=== PATIENT | female | born 1945 | race Caucasian/White ===

== ENCOUNTER → 2022-09-05 14:59 | Outpatient (BNVA) | payer MEDICARE, OTHER, SELFPAY | PROVIDERS: Family Provider Family Medicine; PCP Family Medicine; Visit Provider Internal Medicine Cardiovascular Disease | DX: R94.31 Abnormal electrocardiogram [ECG] [EKG] (principal); I10 Essential (primary) hypertension; E11.9 Type 2 diabetes mellitus without complications; Z79.84 Long term (current) use of oral hypoglycemic drugs; G47.30 Sleep apnea, unspecified; E78.5 Hyperlipidemia, unspecified | CPT/HCPCS: 99204 ==

== ENCOUNTER 2022-09-30 06:00 | Outpatient (CLI) | payer MEDICARE, OTHER, SELFPAY ==
--- NOTE | 2022-09-30 06:15 | USCV_ITS ---
Lexi Escalera Age: 77 Gender: F : 1945 Exam Date: 09/30/2022 06:25 Ordering Phys: Leena Stroud MD ([email or web address]) Technologist: RADHA Exam Location: [facility] [place] Indication: ABNORMAL EKG BP: 170 / 92 HR: 38 Rhythm: Atrial fibrillation Technical Quality: Adequate MEASUREMENTS (Male / Female) Normal Values 2D ECHO LVOT Diameter 2.0 cm LV Ejection Fraction MOD 2C 38.4 % LV Ejection Fraction 2C AL 40.7 % LA Diameter 3.9 cm LA Width 4.2 cm LA Height 4.9 cm RA Width 4.4 cm RA Height 4.7 cm Aorta at Sinotubular Diameter 2.2 cm IVC Diameter 1.8 cm M-MODE Aortic Annulus Diameter 2.6 cm LA Ao Ratio MM 1.5 MV E Point Septal Separation 1.0 cm DOPPLER AV Peak Velocity 112.0 cm/s LVOT Peak Velocity 61.0 cm/s AV Area Cont Eq vti 1.7 cm squared AV Area Cont Eq pk 1.7 cm squared MV Peak Velocity 131.0 cm/s MV Area PHT 4.0 cm squared MV E' Velocity 57.5 cm/s Mitral E to MV E' Ratio 11.3 Mitral E to LV E' Lateral Ratio 10.6 Mitral E to LV E' Septal Ratio 12.1 TR Peak Velocity 317.6 cm/s TR Peak Gradient 40.3 mmHg TR Mean Velocity 252.7 cm/s TR Mean Gradient 27.8 mmHg TR Velocity Time Integral 126.3 cm TV Peak E Velocity 39.0 cm/s Right Atrial Pressure 3.0 mmHg Pulmonary Artery Systolic Pressu 43.3 mmHg PV Peak Velocity 93.0 cm/s RV Acceleration Time 0.2 s RV Ejection Time 0.3 s RV AcT/ET 0.6 FINDINGS Left Ventricle Normal left ventricular size with diminished ejection fraction of 41%. Diffuse hypokinesia of the left ventricle. Right Ventricle The right ventricle is normal in size and function. Right Atrium The right atrium is normal in size. Left Atrium Mildly increased left atrial size. Mitral Valve Moderately severe mitral valve regurgitation. Thickened mitral valve. Aortic Valve No gross abnormalities noted Tricuspid Valve Mild tricuspid valve regurgitation. Pulmonic Valve Trace pulmonary valve regurgitation. Pericardium Normal pericardium without effusion. Aorta Normal ascending aorta dimension. IVC Normal inferior vena cava. CONCLUSIONS Normal left ventricular size with diminished ejection fraction of 41%. In view of the frequent arrhythmias during the study, the LV ejection fraction estimation could be misleading Diffuse hypokinesia of the left ventricle. Mildly increased left atrial size. Thickened mitral valve. Moderately severe mitral valve regurgitation. Mild tricuspid valve regurgitation. Trace pulmonary valve regurgitation. Estimated pulmonary artery peak systolic pressure was 43 mmHg. There is no pericardial effusion. There are no intracardiac masses. No similar previous studies are available for comparison Dr Leena Stroud MD [facility] (Electronically Signed) Final Date: 30 September 2022 19:23 S
== END 2022-09-30 06:01 | disposition home or self-care (01) ==
LOC: RAD 06:01
PROVIDERS: Family Provider Family Medicine; PCP Family Medicine; Visit Provider Internal Medicine Cardiovascular Disease
DX: I08.1 Rheumatic disorders of both mitral and tricuspid valves (principal); R06.09 Other forms of dyspnea
CPT/HCPCS: 93306

== ENCOUNTER 2022-10-25 07:16 | Outpatient (CLI) | payer MEDICARE, OTHER, SELFPAY ==
--- NOTE | 2022-10-25 | ECG_ITS ---
[facility] Test Date: 2022-10-25 Pat Name: Lexi Escalera Department: Room: Gender: Female Analytical Lead: Jazz Dukes : 1945 Requested By: Leena Stroud Order Number: [id number] Bob MD: Leena Stroud M.D. Interpretive Statements NAME OF STUDY: LEXISCAN SESTAMIBI STRESS TEST INDICATION: Chest Pain, PROCEDURE: At the baseline, the EKG revealed sinus rhythm with frequent PVCs in the form of bigeminy and ventricular couplets. The baseline heart was 70 bpm with a blood pressue of 125/58 mm of Hg Lexiscan was infused over a period of 20 seconds. A total of 0.4 milligrams of Lexiscan was infused. The stress phase was continued for a total of 5 minutes. Heart rate at the end of the stress phase was 88 bpm with a blood pressure 130/80 mm of Hg. The EKG at the peak infusion revealed no significant changes. Sestamibi was injected 20 seconds after the Lexiscan infusion. Heart rate at the end of the recovery phase was 90 bpm with a blood pressure of 133/79 mm of Hg. CONCLUSION: 1. No significant EKG changes with the LexiScan infusion 2. No LexiScan induced chest pain or cardiac arrhythmia 3. Normal blood pressure and heart rate response 4. Sestamibi/sestamibi perfusion scan pending; see separate report. Electronically Signed On 11-04-2022 11:28:00 APPLICATIONS PROCESSOR by Leena Stroud M.D. [id number]
[2022-10-25 07:55] VITALS: BMI 25.7
--- NOTE | 2022-10-25 07:55 | NMCV_ITS ---
NM maureen perf SPECT r/s* [id number] Lexi Escalera Age: 77 Gender: F : 1945 Exam Date: 10/25/2022 08:54 Ordering Phys: Leena Stroud MD ([email or web address]) Technologist: MUNIR Olivares Exam Location: [facility] Indications: CORONARY ANGIOPLASTY STATUS STRESS TEST Please see separate [facility] for full findings IMAGE PROTOCOL Rest/Stress 1 Lexiscan Day Radiopharmaceutical Dose (mCi) Administration Site Administered by Rest: Tc-99m 10.7 IV MUNIR Kumar Sestamibi Stress:Tc-99m 32.6 IV MUNIR Kumar Sestamibi Rest: 25-Oct-2022 60 Discovery 630 Stress: 25-Oct-2022 30 Discovery 630 Images obtained in supine and prone position. 0.4mg Lexiscan. SPECT RESULTS Technical Quality: Excellent Raw Data Analysis: Normal Image Corrections: No attenuation or motion correction applied Summed Stress Score: 4 Summed Rest Score: 15 Summed Difference Score: 0 PERFUSION FINDINGS Small areas of decreased tracer uptake were noted in the apical lateral, apical inferior and LV apex. No significant reversibility was noted in these regions. FUNCTIONAL RESULTS (calculated via Gated SPECT) Stress Image LV EF (%): 49 Stress EDV (mL):138 TID: 0.85 Stress ESV (mL):71 FUNCTIONAL FINDINGS: Segmental wall motion analysis revealed diffuse hypokinesia of the septum and the LV apex. The LV cavity was found to be mildly dilated IMPRESSIONS 1. Myocardial perfusion imaging revealing small areas of persistent decreased treacer uptake in the apical regions suggesting myocardial scarring. 2. Slightly diminished LV ejection fraction of 49%. 3. LV wall motion analysis revealed diffuse hypokinesia of the septum and the LV apex. 4. Mildly dilated LV cavity with an end-systolic volume of 71 ml. Low probability for coronary ischemia, based on the above findings No similar previous studies are available for comparison Dr Leena Stroud MD FAC (Electronically Signed) Final Date: 25 October 2022 19:41 S
[2022-10-25] MEDS: regadenoson 0.4 Mg/5 ml Syringe IVP (09:25)
[2022-10-25 09:30] VITALS: BP 133/79; PULSE 90
== END 2022-10-25 07:17 | disposition home or self-care (01) ==
PROVIDERS: PCP Family Medicine; Visit Provider Internal Medicine Cardiovascular Disease
DX: R07.9 Chest pain, unspecified (principal); Z98.61 Coronary angioplasty status; R06.02 Shortness of breath
CPT/HCPCS: 36415; 78452; 93017; 96374; A9500; J2785

== ENCOUNTER 2022-12-06 15:02 | Outpatient (CLI) | payer MEDICARE, OTHER, SELFPAY ==
--- NOTE | 2022-12-06 15:33 | MM_ITS ---
WS: [id number] BILATERAL 3D TOMOSYNTHESIS DIGITAL SCREENING MAMMOGRAPHY WITH CAD CLINICAL INFORMATION: SCREENING HISTORY: Screening mammogram. No current complaints. COMPARISON: 2017 TECHNIQUE: Bilateral CC and MLO views. FINDINGS: Scattered fibroglandular densities bilaterally. No suspicious focal mass, asymmetry, calcifications, or architectural distortion. No evidence of malignancy. A few incidental punctate calcifications. MM/[place] [id number] IMPRESSION: BI-RADS: 2-Benign FOLLOW UP: 1 Year Follow-up Recommend return to annual screening mammography.
== END 2022-12-06 15:03 | disposition home or self-care (01) ==
PROVIDERS: PCP Family Medicine; Visit Provider Family Medicine
DX: Z12.31 Encounter for screening mammogram for malignant neoplasm of breast (principal)
CPT/HCPCS: 77063; 77067

== ENCOUNTER → 2023-03-01 13:58 | Outpatient (BNVA) | payer MEDICARE, OTHER, SELFPAY | PROVIDERS: PCP Family Medicine; Visit Provider Internal Medicine Cardiovascular Disease | DX: I34.0 Nonrheumatic mitral (valve) insufficiency (principal); E78.5 Hyperlipidemia, unspecified; G47.30 Sleep apnea, unspecified; E11.9 Type 2 diabetes mellitus without complications; I10 Essential (primary) hypertension; Z79.84 Long term (current) use of oral hypoglycemic drugs | CPT/HCPCS: 99214 ==

== ENCOUNTER → 2023-05-08 09:51 | Outpatient (BNVA) | payer MEDICARE, OTHER, SELFPAY | PROVIDERS: PCP Family Medicine; Visit Provider Podiatrist Foot & Ankle Surgery | DX: I73.9 Peripheral vascular disease, unspecified (principal); B35.1 Tinea unguium; R60.9 Edema, unspecified; M21.611 Bunion of right foot; M21.612 Bunion of left foot; M20.42 Other hammer toe(s) (acquired), left foot; M20.41 Other hammer toe(s) (acquired), right foot; M24.571 Contracture, right ankle; M24.572 Contracture, left ankle; Z79.84 Long term (current) use of oral hypoglycemic drugs | CPT/HCPCS: 11721; 99204 ==

== ENCOUNTER → 2023-07-17 09:38 | Outpatient (BNVA) | payer MEDICARE, OTHER, SELFPAY | PROVIDERS: PCP Family Medicine; Visit Provider Podiatrist Foot & Ankle Surgery | DX: B35.1 Tinea unguium (principal); M21.619 Bunion of unspecified foot; E11.9 Type 2 diabetes mellitus without complications; M20.40 Other hammer toe(s) (acquired), unspecified foot; R60.9 Edema, unspecified; M24.573 Contracture, unspecified ankle; I73.9 Peripheral vascular disease, unspecified; Z79.84 Long term (current) use of oral hypoglycemic drugs | CPT/HCPCS: 11721; 99213 ==

== ENCOUNTER → 2023-09-13 13:48 | Outpatient (BNVA) | payer MEDICARE, OTHER, SELFPAY | PROVIDERS: PCP Family Medicine; Visit Provider Internal Medicine Cardiovascular Disease | DX: I34.0 Nonrheumatic mitral (valve) insufficiency (principal); I10 Essential (primary) hypertension; E11.9 Type 2 diabetes mellitus without complications; G47.30 Sleep apnea, unspecified; E78.5 Hyperlipidemia, unspecified; R60.0 Localized edema; I49.8 Other specified cardiac arrhythmias; Z79.84 Long term (current) use of oral hypoglycemic drugs | CPT/HCPCS: 99214 ==

== ENCOUNTER → 2023-09-18 09:08 | Outpatient (BNVA) | payer MEDICARE, OTHER, SELFPAY | PROVIDERS: PCP Family Medicine; Visit Provider Podiatrist Foot & Ankle Surgery | DX: B35.1 Tinea unguium (principal); M20.40 Other hammer toe(s) (acquired), unspecified foot; R60.9 Edema, unspecified; M24.573 Contracture, unspecified ankle; I73.9 Peripheral vascular disease, unspecified; M21.612 Bunion of left foot; M21.611 Bunion of right foot; M24.572 Contracture, left ankle; M24.571 Contracture, right ankle; Z79.84 Long term (current) use of oral hypoglycemic drugs | CPT/HCPCS: 11721 ==

== ENCOUNTER 2023-09-27 06:03 | Outpatient (CLI) | payer MEDICARE, OTHER, SELFPAY ==
--- NOTE | 2023-09-27 06:15 | USCV_ITS ---
Lexi Escalera Age: 78 Gender: F : 1945 Exam Date: 09/27/2023 06:18 Ordering Phys: Leena Stroud MD ([email or web address]) Technologist: RADHA [place] [facility] [place]ication: RLE SWELLING [id number] HISTORY: Lower extremity swelling. PROCEDURES: Venous duplex imaging was performed in only the right lower extremity. The following venous structures were evaluated: common femoral vein, profunda vein, proximal portion of the greater saphenous vein, superficial femoral vein, and the popliteal vein. In addition, the posterior tibial and peroneal trunk were evaluated. Serial compression, augmentation maneuvers, and spectral Doppler flow evaluation were performed. FINDINGS: No evidence of DVT seen in any vessel visualized at this time. Edema see in lower right leg CONCLUSIONS No DVT right lower extremity. Dr. Myrna Carlos DO (Electronically Signed) Final Date: 27 September 2023 08:31 S
== END 2023-09-27 06:04 | disposition home or self-care (01) ==
LOC: RAD 06:03
PROVIDERS: PCP Family Medicine; Visit Provider Internal Medicine Cardiovascular Disease
DX: M79.89 Other specified soft tissue disorders (principal); M79.661 Pain in right lower leg
CPT/HCPCS: 11721; 93971

== ENCOUNTER 2023-10-03 16:08 | Outpatient (CLI) | payer MEDICARE, OTHER, SELFPAY ==
[2023-10-03 17:01] LABS: Blood Urea Nitrogen 19 mg/dL (8-23); Calcium 9.6 mg/dL (8.5-10.5); Carbon Dioxide 27 mmol/L (22-29); Chloride 102 mmol/L (98-107); Glucose 133 mg/dL (65-115); NT Pro B Type Natriuretic Pept 1027 pg/mL (0-450); Osmolality Calculated 296 mOsm/kg (285-295); Sodium 141 mmol/L (136-145)
== END 2023-10-03 16:09 | disposition home or self-care (01) ==
LOC: LAB 16:09
PROVIDERS: PCP Family Medicine; Visit Provider Internal Medicine Cardiovascular Disease
DX: R06.02 Shortness of breath (principal); I10 Essential (primary) hypertension
CPT/HCPCS: 36415; 80048; 83880

== ENCOUNTER 2023-10-18 09:57 | Outpatient (CLI) | payer MEDICARE, OTHER, SELFPAY ==
[2023-10-18 11:12] LABS: Anion Gap 13.2 (5-19); Blood Urea Nitrogen 23 mg/dL (8-23); Calcium 9.8 mg/dL (8.5-10.5); Carbon Dioxide 30 mmol/L (22-29); Chloride 104 mmol/L (98-107); Glucose 240 mg/dL (65-115); NT Pro B Type Natriuretic Pept 541 pg/mL (0-450); Osmolality Calculated 308 mOsm/kg (285-295); Potassium 4.2 mmol/L (3.5-5.1); Sodium 143 mmol/L (136-145)
== END 2023-10-18 09:58 | disposition home or self-care (01) ==
LOC: LAB 10:00
PROVIDERS: Internal Medicine Cardiovascular Disease; PCP Family Medicine; Visit Provider Internal Medicine
DX: I34.0 Nonrheumatic mitral (valve) insufficiency (principal)
CPT/HCPCS: 36415; 80048; 83880

== ENCOUNTER → 2023-12-04 09:23 | Outpatient (BNVA) | payer MEDICARE, OTHER, SELFPAY | PROVIDERS: PCP Family Medicine; Visit Provider Podiatrist Foot & Ankle Surgery | DX: B35.1 Tinea unguium; M21.619 Bunion of unspecified foot; R60.9 Edema, unspecified; M24.573 Contracture, unspecified ankle; I73.9 Peripheral vascular disease, unspecified; E11.69 Type 2 diabetes mellitus with other specified complication; M20.42 Other hammer toe(s) (acquired), left foot; M20.41 Other hammer toe(s) (acquired), right foot; Z79.84 Long term (current) use of oral hypoglycemic drugs; I34.0 Nonrheumatic mitral (valve) insufficiency | CPT/HCPCS: 11721; 36415; 80048; 83880 ==

== ENCOUNTER → 2024-02-12 07:37 | Outpatient (BNVA) | payer MEDICARE, SELFPAY | PROVIDERS: PCP Family Medicine; Visit Provider Podiatrist Foot & Ankle Surgery | DX: B35.1 Tinea unguium (principal); M21.619 Bunion of unspecified foot; M20.40 Other hammer toe(s) (acquired), unspecified foot; M24.573 Contracture, unspecified ankle; I73.9 Peripheral vascular disease, unspecified; Z79.84 Long term (current) use of oral hypoglycemic drugs | CPT/HCPCS: 11721 ==

== ENCOUNTER → 2024-03-21 14:10 | Outpatient (BNVA) | payer MEDICARE, SELFPAY | PROVIDERS: PCP Family Medicine; Visit Provider Internal Medicine Cardiovascular Disease | DX: I42.9 Cardiomyopathy, unspecified (principal); E78.5 Hyperlipidemia, unspecified; I10 Essential (primary) hypertension; I34.0 Nonrheumatic mitral (valve) insufficiency; E08.9 Diabetes mellitus due to underlying condition without complications; Z79.84 Long term (current) use of oral hypoglycemic drugs; G47.30 Sleep apnea, unspecified; I49.8 Other specified cardiac arrhythmias | CPT/HCPCS: 99214 ==

== ENCOUNTER 2024-03-27 08:06 | Outpatient (CLI) | payer MEDICARE, OTHER, SELFPAY ==
--- NOTE | 2024-03-27 08:12 | MM_ITS ---
WS: [id number] BILATERAL SCREENING DIGITAL TOMOSYNTHESIS MAMMOGRAM WITH CAD HISTORY: SCREENING COMPARISON: 12/06/2022, 05/03/2017 Bilateral CC and MLO views with tomosynthesis and synthetic mammography submitted. Computer aided det ection analyzed. Breast composition: There are scattered areas of fibroglandular density. No suspicious masses, microc alcifications or architectural distortion. MM/[place] [id number] IMPRESSION: BI-RADS: 1-Negative FOLLOW UP: 1 Year Follow-up
== END 2024-03-27 08:07 | disposition home or self-care (01) ==
LOC: RAD 08:09
PROVIDERS: PCP Family Medicine; Visit Provider Family Medicine
DX: Z12.31 Encounter for screening mammogram for malignant neoplasm of breast (principal); R92.323 Mammographic fibroglandular density, bilateral breasts
CPT/HCPCS: 77063; 77067

== ENCOUNTER 2024-04-01 05:50 | Outpatient (CLI) | payer MEDICARE, OTHER, SELFPAY ==
--- NOTE | 2024-04-01 06:15 | USCV_ITS ---
Lexi Escalera Age: 78 Gender: F : 1945 Exam Date: 04/01/2024 06:03 Ordering Phys: Leena Stroud MD ([email or web address]) Technologist: Exam Location: [facility] [place] Indication: mumur BP: 120 / 70 HR: 80 Rhythm: Sinus Technical Quality: Adequate MEASUREMENTS (Male / Female) Normal Values 2D ECHO LV Diastolic Diameter PLAX 4.8 cm 4.2 - 5.9 / 3.9 - 5.3 cm IVS Diastolic Thickness 1.1 cm 0.6 - 1.0 / 0.6 - 0.9 cm IVS Systolic Thickness 1.7 cm LVPW Diastolic Thickness 1.5 cm 0.6 - 1.0 / 0.6 - 0.9 cm LVPW Systolic Thickness 2.1 cm LVOT Diameter 2.0 cm LV Ejection Fraction 2D Teich 51.5 % LV Ejection Fraction MOD 2C 69.5 % LV Ejection Fraction 2C AL 69.2 % LA Diameter 3.9 cm RA Systolic Volume 4C AL 32.9 ml RA Systolic Volume 4C MOD 31.7 ml LA Sys Volume AL 51.0 cm cubed LA Sys Volume Index AL 26.6 cm cubed/m squared Aorta at Sinotubular Diameter 2.5 cm IVC Diameter 1.2 cm M-MODE LA Ao Ratio MM 1.2 AV Cusp Separation MM 2.1 cm DOPPLER AV Peak Velocity 116.0 cm/s LVOT Peak Velocity 63.0 cm/s AV Area Cont Eq vti 2.1 cm squared AV Area Cont Eq pk 1.7 cm squared MV Peak Velocity 84.0 cm/s MV Area PHT 3.7 cm squared Mitral E to A Ratio 1.2 TR Peak Velocity 314.0 cm/s TR Peak Gradient 39.4 mmHg TV Peak E Velocity 108.0 cm/s Right Atrial Pressure 3.0 mmHg Pulmonary Artery Systolic Pressu 42.4 mmHg PV Peak Velocity 104.0 cm/s FINDINGS Left Ventricle Normal left ventricular size and systolic function, EF 69%. No regional wall motion abnormalities. Right Ventricle The right ventricle is normal in size and function. Right Atrium The right atrium is normal in size. Left Atrium Mildly increased left atrial size. Mitral Valve Trace mitral valve regurgitation. Aortic Valve No gross abnormalities noted Tricuspid Valve Trace tricuspid valve regurgitation. Estimated pulmonary artery peak systolic pressure 42 mmHg Pulmonic Valve No gross abnormalities noted Pericardium Normal pericardium without effusion. Aorta Normal ascending aorta dimension. IVC Normal inferior vena cava. CONCLUSIONS Normal left ventricular size and systolic function, EF 69%. No regional wall motion abnormalities. Mildly increased left atrial size. Trace mitral valve regurgitation. Trace tricuspid valve regurgitation. Mild pulmonary hypertension within an estimated pulmonary artery peak systolic pressure 42 mmHg. There is no pericardial effusion. Technically difficult study because of the poor ultrasonic window. Compared to the study from 09/30/2022, there is significant improvement of the LV ejection fraction from 41% to 69% Dr Leena Stroud MD [facility] (Electronically Signed) Final Date: 01 April 2024 18:48 S
== END 2024-04-01 05:51 | disposition home or self-care (01) ==
LOC: RAD 05:50
PROVIDERS: PCP Family Medicine; Visit Provider Internal Medicine Cardiovascular Disease
DX: I34.0 Nonrheumatic mitral (valve) insufficiency (principal); I42.9 Cardiomyopathy, unspecified; I27.20 Pulmonary hypertension, unspecified
CPT/HCPCS: 93306

== ENCOUNTER → 2024-04-15 07:54 | Outpatient (BNVA) | payer MEDICARE, OTHER, SELFPAY | PROVIDERS: PCP Family Medicine; Visit Provider Podiatrist Foot & Ankle Surgery | DX: B35.1 Tinea unguium (principal); M20.40 Other hammer toe(s) (acquired), unspecified foot; M24.573 Contracture, unspecified ankle; I73.9 Peripheral vascular disease, unspecified; E11.69 Type 2 diabetes mellitus with other specified complication; M24.571 Contracture, right ankle; M24.572 Contracture, left ankle; M21.611 Bunion of right foot; M21.612 Bunion of left foot | CPT/HCPCS: 11721 ==

== ENCOUNTER → 2024-06-14 10:32 | Outpatient (BNVA) | payer MEDICARE, OTHER, SELFPAY | PROVIDERS: PCP Family Medicine; Visit Provider Nurse Practitioner Family | DX: R94.31 Abnormal electrocardiogram [ECG] [EKG] (principal); I10 Essential (primary) hypertension; I49.8 Other specified cardiac arrhythmias; I48.91 Unspecified atrial fibrillation | CPT/HCPCS: 36415; 80048; 84439; 84443; 84481; 85025; 93005; 99214 ==

== ENCOUNTER → 2024-06-18 07:53 | Outpatient (BNVA) | payer MEDICARE, OTHER, SELFPAY | PROVIDERS: PCP Family Medicine; Visit Provider Podiatrist Foot & Ankle Surgery | DX: B35.1 Tinea unguium (principal); I73.9 Peripheral vascular disease, unspecified; M20.41 Other hammer toe(s) (acquired), right foot; M20.42 Other hammer toe(s) (acquired), left foot; M24.571 Contracture, right ankle; M24.572 Contracture, left ankle; Z79.84 Long term (current) use of oral hypoglycemic drugs; E11.69 Type 2 diabetes mellitus with other specified complication | CPT/HCPCS: 11721 ==

== ENCOUNTER 2024-07-16 09:39 | Outpatient (CLI) | payer MEDICARE, OTHER, SELFPAY ==
[2024-07-16 10:02] VITALS: BMI 26.6
--- NOTE | 2024-07-16 10:02 | ECG_ITS ---
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
--- NOTE | 2024-07-16 10:03 | NMCV_ITS ---
NM maureen perf SPECT r/s* [id number] Lexi Escalera Age: 79 Gender: F : 1945 Exam Date: 07/16/2024 10:43 Ordering Phys: Jennifer Farrell Technologist: MUNIR Kumar Exam Location: [facility] Indications: SOB STRESS TEST Please see separate stress test report in [facility] for full findings IMAGE PROTOCOL Rest/Stress 1 Lexiscan Day Radiopharmaceutical Dose (mCi) Administration Site Administered by Rest: Tc-99m 10.8 IV MUNIR Kumar Sestamibi Stress:Tc-99m 32.9 IV MUNIR Kumar Sestamibi Rest: 16-Jul-2024 60 Discovery 630 Stress: 16-Jul-2024 30 Discovery 630 0.4mg Lexiscan. Images obtained in supine and prone position. SPECT RESULTS Technical Quality: Good Raw Data Analysis: Subdiaphragmatic activity cause some scaling problems on stress supine and rest. [place] area looks okay prone images. Image Corrections: No attenuation or motion correction applied Summed Stress Score: 12 Summed Rest Score: 15 Summed Difference Score: 1 PERFUSION FINDINGS Moderate area of moderately decreased tracer uptake involving the all the apical segments including the LV apex and apical inferolateral regions segments. Minimal reversibility was noted at the LV apex FUNCTIONAL RESULTS (calculated via Gated SPECT) Stress Image LV EF (%): 61 Stress EDV (mL):93 TID: 0.75 Stress ESV (mL):36 FUNCTIONAL FINDINGS: Segmental wall motion analysis revealing mild hypokinesis of the LV apex IMPRESSIONS 1. Myocardial perfusion imaging revealing small to moderate area of moderately decreased tracer uptake involving all the apical segment, LV apex and mid inferolateral segments with no significant reversibility suggesting myocardial scarring mostly in the distribution of the distal circumflex and left anterior descending artery 2. Normal LV ejection fraction 61% 3. LV wall motion analysis revealing mild hypokinesia of the LV apex. 4. Normal LV volume No significant coronary ischemia, based on the above finding Compared to the study from 10/25/2022, there may not be a significant change Dr Leena Stroud MD [facility] (Electronically Signed) Final Date: 16 July 2024 13:52 S
[2024-07-16] MEDS: regadenoson 0.4 Mg/5 ml Syringe IVP (11:45)
[2024-07-16 11:56] VITALS: BP 106/65; PULSE 87
== END 2024-07-16 09:40 | disposition home or self-care (01) ==
PROVIDERS: PCP Family Medicine; Visit Provider Nurse Practitioner Family
DX: R94.31 Abnormal electrocardiogram [ECG] [EKG] (principal); I10 Essential (primary) hypertension; I42.9 Cardiomyopathy, unspecified; I49.9 Cardiac arrhythmia, unspecified
CPT/HCPCS: 36415; 78452; 93017; 96374; A9500; J2785

== ENCOUNTER → 2024-08-20 08:19 | Outpatient (BNVA) | payer MEDICARE, OTHER, SELFPAY | PROVIDERS: PCP Family Medicine; Visit Provider Podiatrist Foot & Ankle Surgery | DX: B35.1 Tinea unguium (principal); M24.573 Contracture, unspecified ankle; I73.9 Peripheral vascular disease, unspecified; B35.3 Tinea pedis; E11.69 Type 2 diabetes mellitus with other specified complication; M20.41 Other hammer toe(s) (acquired), right foot; M20.42 Other hammer toe(s) (acquired), left foot; Z79.84 Long term (current) use of oral hypoglycemic drugs | CPT/HCPCS: 11721; 99213 ==

== ENCOUNTER → 2024-09-30 11:00 | Outpatient (BNVA) | payer MEDICARE, OTHER, SELFPAY | PROVIDERS: PCP Family Medicine; Visit Provider Internal Medicine Cardiovascular Disease | DX: R06.02 Shortness of breath (principal) | CPT/HCPCS: 36415; 80048; 83880 ==

== ENCOUNTER → 2024-10-29 07:04 | Outpatient (BNVA) | payer MEDICARE, OTHER, SELFPAY | PROVIDERS: PCP Family Medicine; Visit Provider Podiatrist Foot & Ankle Surgery | DX: B35.1 Tinea unguium (principal); I73.9 Peripheral vascular disease, unspecified; B35.3 Tinea pedis; E11.69 Type 2 diabetes mellitus with other specified complication; M20.41 Other hammer toe(s) (acquired), right foot; M20.42 Other hammer toe(s) (acquired), left foot; M24.571 Contracture, right ankle; M24.572 Contracture, left ankle; Z79.84 Long term (current) use of oral hypoglycemic drugs | CPT/HCPCS: 11721 ==

== ENCOUNTER 2024-12-26 15:00 | Outpatient (CLI) | payer MEDICARE, OTHER, SELFPAY ==
--- NOTE | 2024-12-26 15:06 | CT_ITS ---
WS: [id number] CT chest wo con [id number] HISTORY: ABNORMAL MRI, follow-up LEFT lower lobe nodule seen on MRI. TECHNIQUE: Axial imaging performed through the thorax. Coronal and sagittal reformats are submitted. All CT scans at [facility] use at least one of these dose optimization techniques: automated exposure control; mA and/or kV adjustment per patient size (includes targeted exams where dose is matched to clinical indication); or iterative reconstruction. CONTRAST: None DLP: 324.70 mGy.cm COMPARISON: MR chest 11/14/2024 Lungs and central airway: Well aerated lungs. Small cluster of calcified nodules in the medial LEFT lower lobe. There is an additional well-circumscribed nodule in the LEFT lower lobe measuring 4.3 mm. No additional mass or nodules. No endobronchial lesions. Pleura: Normal. No pleural effusion. Heart and pericardium: Heart is moderately enlarged. No pericardial effusion. There is a mild pectus excavatum deformity which may be contributing to the appearance of the heart being enlarged. No mediastinal or hilar pathologic adenopathy. Mediastinum and celeste: Lobulated fullness in the LEFT suprahilar region measures 1.2 x 2.9 cm. This mass is closely associated with the pulmonary artery and the mediastinum. Otherwise small mediastinal lymph nodes. Vessels: Mild atherosclerosis aorta. No aneurysm. Normal size pulmonary artery. Chest wall and lower neck: Splenic granulomata. Upper abdomen: Splenic granulomata. Osseous structures: Mild pectus excavatum. Mild curvature and scoliosis of the thoracic spine. Moderate degenerative disc disease and spondylosis. CT/CT chest wo con [id number] IMPRESSION: 1. Noncalcified LEFT lower lobe 4.3 mm pulmonary nodule. Recommend follow-up c hest CT in 6 months. 2. Lobulated soft tissue fullness in the LEFT suprahilar region measures 1.2 x 2.9 cm. Cannot be further evaluated on this unenhanced exam. MRI chest was rev iewed and the hilum was included in a few sequences. These may be bronchogenic cyst. Recommend follow-up chest CT with IV contrast. Adenopathy or solid mass n eeds to be excluded at this time. 3. Benign granulomata medial LEFT lower lobe. 4. Moderate cardiomegaly. Cardiomegaly is being exacerbated by pectus excavatu m deformity.
== END 2024-12-26 15:01 | disposition home or self-care (01) ==
LOC: RAD 15:03
PROVIDERS: PCP Family Medicine; Visit Provider Family Medicine
DX: R93.89 Abnormal findings on diagnostic imaging of other specified body structures (principal); R91.8 Other nonspecific abnormal finding of lung field; J84.10 Pulmonary fibrosis, unspecified; I51.7 Cardiomegaly; I70.0 Atherosclerosis of aorta; D73.89 Other diseases of spleen; M43.8X4 Other specified deforming dorsopathies, thoracic region; M41.84 Other forms of scoliosis, thoracic region; R93.7 Abnormal findings on diagnostic imaging of other parts of musculoskeletal system; M47.9 Spondylosis, unspecified
CPT/HCPCS: 71250

== ENCOUNTER → 2024-12-31 07:21 | Outpatient (BNVA) | payer MEDICARE, OTHER, SELFPAY | PROVIDERS: PCP Family Medicine; Visit Provider Podiatrist Foot & Ankle Surgery | DX: E11.42 Type 2 diabetes mellitus with diabetic polyneuropathy (principal); B35.1 Tinea unguium; M24.573 Contracture, unspecified ankle; I73.9 Peripheral vascular disease, unspecified; B35.3 Tinea pedis; M20.41 Other hammer toe(s) (acquired), right foot; M20.42 Other hammer toe(s) (acquired), left foot; Z79.84 Long term (current) use of oral hypoglycemic drugs | CPT/HCPCS: 11056; 11721; 99213 ==

== ENCOUNTER 2025-01-07 22:35 | Emergency (ER) | payer MEDICARE, OTHER, SELFPAY ==
[2025-01-07 22:45] VITALS: BP 171/88; PULSE 88; RESP 18; TEMP 36.6; O2SAT 88; BMI 26.6
[2025-01-07 22:48] VITALS: BP 171/88; PULSE 88; RESP 18; O2SAT 95
--- NOTE | 2025-01-07 22:49 | ECG_ITS ---
[facility]07 Pat Name: Lexi Escalera Department: Room: Gender: Female Inspector [employer]ings: : 1945 Requested By: Jayden Childress Order Number: [id number] Bob MD: Leena Stroud M.D. Measurements Intervals [place] Rate: 106 P: 83 MD: 150 QRS: 41 QRSD: 82 T: 76 QT: 312 QTc: 415 Interpretive Statements SINUS TACHYCARDIA NONSPECIFIC ST & T-WAVE ABNORMALITY ABNORMAL RHYTHM ECG Compared to ECG 06/14/2024 10:37:33 Atrial fibrillation no longer present Ventricular premature complex(es) no longer present Aberrant conduction of supraventricular beat(s) no longer present T-wave abnormality still present Electronically Signed On 01-08-2025 22:16:49 CDT by Leena Stroud M.D. [email or web address] [email or web address]
--- NOTE | 2025-01-07 22:49 | CTR_ITS ---
PROCEDURE INFORMATION: Exam: CT Cervical Spine Without Contrast Exam date and time: 01/07/2025 11:04 PM Age: 79 years old Clinical indication: Injury or trauma; Fall; Blunt trauma; Additional info: Fall, hit head TECHNIQUE: Imaging protocol: Computed tomography of the cervical spine without contrast. Radiation optimization: All CT scans at this facility use at least one of these dose optimization techniques: automated exposure control; mA and/or kV adjustment per patient size (includes targeted exams where dose is matched to clinical indication); or iterative reconstruction. COMPARISON: CT head wo con* [id number] 01/07/2025 11:01 PM RADIATION DOSE METRICS: Total DLP (mGy-cm): 159.17 FINDINGS: Bones: No acute fracture. Normal alignment. No significant disc bulge or herniation. No severe spinal canal stenosis. No significant neural foraminal narrowing. Extensive anterior vertebral body osteophyte formation noted throughout the cervical spine. Diffuse facet arthropathy present. Lungs: Lung apices are normal. Soft tissues: Unremarkable. CT/CT cervical spin wo con* [id number] IMPRESSION: No acute abnormality. Multilevel degenerative changes involving the cervical spine.
--- NOTE | 2025-01-07 22:49 | CTR_ITS ---
PROCEDURE INFORMATION: Exam: CT Head Without Contrast Exam date and time: 01/07/2025 11:01 PM Age: 79 years old Clinical indication: Injury or trauma; Fall; Blunt trauma (contusions or hematomas); Additional info: Fall, hit head TECHNIQUE: Imaging protocol: Computed tomography of the head without contrast. Radiation optimization: All CT scans at this facility use at least one of these dose optimization techniques: automated exposure control; mA and/or kV adjustment per patient size (includes targeted exams where dose is matched to clinical indication); or iterative reconstruction. COMPARISON: No relevant prior studies available. RADIATION DOSE METRICS: Total DLP (mGy-cm): 1197.18 FINDINGS: Brain: Periventricular white matter changes likely related to chronic ischemic small vessel disease. No intracranial mass, hemorrhage or recent infarct. Brain atrophy present. Cerebral ventricles: No ventriculomegaly. Paranasal sinuses: Visualized sinuses are unremarkable. No fluid levels. Mastoid air cells: Visualized mastoid air cells are well aerated. Bones: Unremarkable. No acute fracture. Soft tissues: Large right posterior scalp soft tissue hematoma. CT/CT head wo con* [id number] IMPRESSION: 1. No acute intracranial abnormality. 2. Large right posterior scalp hematoma.
--- NOTE | 2025-01-07 22:49 | XRR_ITS ---
PROCEDURE INFORMATION: Exam: XR Chest Exam date and time: 01/07/2025 11:39 PM Age: 79 years old Clinical indication: Injury or trauma; Fall; Blunt trauma (contusions or hematomas) TECHNIQUE: Imaging protocol: Radiologic exam of the chest. Views: 1 view. COMPARISON: CT chest [facility] [id number] 12/26/2024 3:40 PM FINDINGS: Lungs: Unremarkable. No consolidation. Pleural spaces: Unremarkable. No pleural effusion. No pneumothorax. Heart/Mediastinum: Unremarkable. No cardiomegaly. Bones/joints: Unremarkable. XR/XR chest 1V portable [id number] IMPRESSION: No acute findings.
--- NOTE | 2025-01-07 22:50 | XRR_ITS ---
PROCEDURE INFORMATION: Exam: XR Right Forearm Exam date and time: 01/07/2025 11:39 PM Age: 79 years old Clinical indication: Injury or trauma; Fall; Fracture, traumatic injury; Closed fracture; Radius and ulna; Right; Additional info: Fall/pain TECHNIQUE: Imaging protocol: Radiologic exam of the right forearm. Views: 2 views. COMPARISON: No relevant prior studies available. FINDINGS: Bones/joints: Fracture of the distal 1/3 of the right ulna. Soft tissues: Normal. XR/XR forearm RT 2V [id number] IMPRESSION: Fracture of the distal 1/3 of the right ulna.
--- NOTE | 2025-01-07 23:02 | ED_ITS ---
HPI - Fall 2 General: Chief Complaint: Fall Stated Complaint: fall Time Seen by Provider: 01/07/25 22:38 Source: patient Mode of arrival: EMS Limitations: no limitations History of Present Illness: Patient is a 79-year-old female with past medical history of diabetes who is brought in by ambulance for a fall that occurred just prior to arrival. Patient reports to me that she lost her balance and fell down 3 steps, striking the right occipital region. Also notes that she injured her right forearm in the process, is having pain with any movement of the right forearm. States that she did not lose consciousness, had no symptoms prior to falling and that this was entirely accidental. She is not on a blood thinner. No focal neurological deficits reported, no visual changes, no chest pain or shortness of breath, no other injuries. Reporting 9/10 headache at this time. MD complaint: fall Onset (ago): minute(s) Fall from: down stairs (#) (3) Place fall occurred: home Loss of consciousness: None Prolonged down time: no Symptoms prior to fall: none Context: tripped/slipped Location of injury: head Location of injury - extremities: Right: forearm Severity scale (1-10): 9 Associated symptoms-after fall: Reports headache(s); Denies abdominal pain, chest pain, lightheadedness or neck pain Related Data Home Medications ?Medication ?Instructions ?Recorded ?Confirmed metformin 500 mg tablet 1,000 mg PO BID 12/16/1909/16 levothyroxine 25 mcg capsule 25 mcg PO DAILY 09/05/22 12/31/24 sitagliptin phosphate 100 mg 100 mg PO DAILY 09/05/22 12/31/24 tablet (Januvia) Previous Rx's ?Medication ?Instructions ?Recorded compression stockings #1 ea 05/08/23 diabetic shoes with 3 inserts #1 ea 05/08/23 clotrimazole-betamethasone 1 1 applic topical BID 4 we eks #45 07/17/23 %-0.05 % topical cream grams magnesium L-lactate 84 mg 84 mg PO DAILY #30 tabs 06/24 05/15 tablet,extended release amlodipine 5 mg tablet (Norvasc) 10 mg (2 x 5 mg) PO D AILY #180 tabs 12/03/24 furosemide 20 mg tablet 20 mg PO DAILY #90 tabs 11/23 05/16 losartan 100 mg tablet 150 mg (1.5 x 100 mg) PO PINEDA LY 12/09/24 #180 tabs metoprolol tartrate 50 mg tablet 50 mg PO BID #180 tab s 12/09/24 potassium chloride 8 mEq 8 meq PO DAILY #90 caps 11/23 05/16 capsule,extended release Diabetic Shoes #1 ea 12/31/24 clotrimazole-betamethasone 1 1 applic topical BID athl etes foot 12/31/24 %-0.05 % topical cream 4 weeks #45 grams Allergies Allergy/AdvReac Type Severity Reaction Status Date / Time Sulfa (Sulfonamide Allergy Unknown Unknown Verified 01/07/25 22:46 Antibiotics) Alpha-Gal Allergy ALGY-Anaphy Verified 01/07/25 22:46 (Fylcnelqg-Twbtz-0,3-Gala laxis tramadol Allergy ALGY-Anaphy Verified 01/07/25 22:46 laxis Review of Systems 2 General: Reports: 10 or more systems reviewed and unremarkable except in HPI and below Const: Reports: other (Fall/head injury); Denies: fever(s), chills or fatigue Eyes: Denies: change in vision ENMT: Denies: throat pain, ear or mastoid pain or nasal discharge Card: Denies: chest pain, palpitations, swelling of feet/ankles or lightheadedness Resp: Denies: dyspnea, productive cough or wheezing GI: Denies: abdominal pain, nausea, vomiting, diarrhea or constipation : Denies: flank pain, difficulty voiding, dysuria or urinary frequency Musc: Reports: extremity pain (Right forearm); Denies: neck pain, back pain or joint pain Skin/Breast: Denies: rash Neuro: Reports: headache(s); Denies: numbness in extremities, weakness in extremities, dizziness or seizure- like activity PFSH ED 2 PFSH: Medical History Sjogrens syndrome Essential hypertension Diabetes mellitus Sleep apnea Dyslipidemia Family History Mother CAD (coronary artery disease) [place] Grandmother Stroke Father Cancer Diabetes Sister Bleeding disorder CAD (coronary artery disease) Dementia Diabetes Sister Diabetes Denies family history of Clotting disorder Chronic kidney disease (CKD) Suicide Anesthesia complication Lung disease Social History Smoking and tobacco/nicotine status: never used tobacco/nicotine Alcohol intake: never Substance/Drug Use: never Lives independently: Yes Marital status: / Physical Exam 2 Const: COMMON NORMALS: no acute distress, patient oriented x3, no limitations, healthy appearing, alert and well nourished HENMT: COMMON NORMALS: Normal external nose present HEAD & SCALP: hematoma right occipital ; no Sousa's sign, no palpable skull fracture and no raccoon eyes FACE & SINUS: normal facial exam and face symmetric NOSE: Normal external nose present Eye: COMMON NORMALS: Equal, round and reactive pupils present, EOMs intact bilaterally and conjunctivae normal CONJUNCTIVA: Yes conjunctivae normal P UPIL: Yes Equal, round and reactive pupils present Neck/C-Spine: CERVICAL SPINE: Yes collar present OTHER: No cervical spine tenderness Chest: COMMONS NORMALS: normal inspection of the chest and normal palpation of entire chest wall Resp: COMMON NORMALS: normal respiratory effort, No retractions, No use of accessory muscles and clear to auscultation bilaterally AUSCULTATION: clear to auscultation bilaterally Cardio: COMMON NORMALS: regular rate, regular rhythm, No gallops present (Cardio), No murmurs present (Cardio) and No rub (Cardio) RATE: regular rate RHYTHM: regular rhythm GI: COMMON NORMALS: Normal to inspection, nondistended, normoactive bowel sounds present, Soft to palpation and non-tender PALPATION: Yes Soft to palpation Extremity: COMMON NORMALS: normal to inspection and full ROM NARRATIVE EXTREMITY EXAM: Tender to palpation right forearm, no obvious deformity or bruising. No swelling. Distal neurovascular exam intact. All other extremities palpated and normal. Neuro: COMMON NORMALS: patient oriented x3, CN's II-XII intact bilaterally, moves all extremities, no focal motor deficits and no sensory deficits noted SENSORIUM/ORIENTATION: Yes alert Skin: NARRATIVE SKIN EXAM: Small abrasion to left pinky Course 2 Vital Signs: Vital signs: Vital Signs Temperature 97.8 F 01/07/25 22:45 Pulse Rate 72 01/08/25 02:33 Respiratory Rate 16 01/08/25 01:30 Blood Pressure 141/69 01/08/25 02:33 Pulse Oximetry 93 01/08/25 02:33 Oxygen Delivery Me thod Room Air 01/08/25 00:00 MDM - Fall Medical Decision Making This patient had fallen, down a couple of steps and struck the back of her head, no blood thinner. Also reported pain/injury to right forearm. Neurologically intact on exam, hematoma noted to right occipital region with no open wound. X- ray right forearm did show fracture distal third of right ulna, she was placed in sugar-tong splint, sling, and will be referred to orthopedics for further evaluation. Her head and neck CT were negative, just noting the large posterior scalp hematoma. Chest x-ray normal, EKG reviewed with physician did not show any cardiac abnormalities and her blood work was all unremarkable. Closed head injury and right forearm fracture, informed her to follow-up with orthopedics and primary care, apply ice to the back of her head, take pain medications [id number] and to monitor her condition for any new or worsening. She agrees with this plan. Lab Data 01/07/25 23:34 01/07/25 23:34 Radiology Impressions Cervical Spine CT 01/07/25 22:49 IMPRESSION: No acute abnormality. Multilevel degenerative changes involving the cervical spine. Chest X-Ray 01/07/25 22:49 IMPRESSION: No acute findings. Head CT 01/07/25 22:49 IMPRESSION: 1. No acute intracranial abnormality. 2. Large right posterior scalp hematoma. Forearm X-Ray 01/07/25 22:50 IMPRESSION: Fracture of the distal 1/3 of the right ulna. Laboratory Results WBC 12.66 10^3/uL (3.29-11.43) H 01/07/25 23:34 Corrected WBC Cancelled 01/07/25 22:53 RBC 3.88 10^6/uL (3.85-5.65) 01/07/25 23:34 Hgb 11.90 g/dL (11.27-16.99) 01/07/25 23:34 Hct 36.9 % (36-47) 01/07/25 23:34 MCV 95.1 fl (85-98) 01/07/25 23:34 MCH 30.7 pg (27-33) 01/07/25 23:34 MCHC 32.2 g/dL (30-55) 01/07/25 23:34 RDW 14.2 % (12.1-15.1) 01/07/25 23:34 Plt Count 231 10^3/cmm (157-399) 01/07/25 23:34 MPV 9.9 fL (7.4-10.4) 01/07/25 23:34 Gran % Cancelled 01/07/25 22:53 Neut % (Auto) 85.4 % 01/07/25 23:34 Lymph % (Auto) 8.7 % 01/07/25 23:34 [place] % (Auto) 4.6 % 01/07/25 23:34 Eos % (Auto) 0.6 % 01/07/25 23:34 Baso % (Auto) 0.2 % 01/07/25 23:34 Neut # (Auto) 10.83 10^3/uL (1.8-7.7) H 01/07/25 23:34 Lymph # (Auto) 1.1 10^3/uL (0.8-4.8) 01/07/25 23:34 [place] # (Auto) 0.6 10^3/uL (0.2-0.9) 01/07/25 23:34 Eos # (Auto) 0.1 10^3/uL (0.0-0.8) 01/07/25 23:34 Baso # (Auto) 0.0 10^3/uL (0.0-0.1) 01/07/25 23:34 Absolute Gran (auto) Cancelled 01/07/25 22:53 Nucleated RBC % (auto) 0 % 01/07/25 23:34 Nucleated RBCs # 0.0 /100WBC 01/07/25 23:34 Sodium 142 mmol/L (136-145) 01/07/25 23:34 Potassium 3.9 mmol/L (3.5-5.1) 01/07/25 23:34 Chloride 104 mmol/L (98-107) 01/07/25 23:34 Carbon Dioxide 27 mmol/L (22-29) 01/07/25 23:34 Anion Gap 14.9 (5-19) 01/07/25 23:34 BUN 18 mg/dL (8-23) 01/07/25 23:34 Creatinine 1.0 mg/dL (0.5-0.9) H 01/07/25 23:34 GFR Calculation Not Reportable 01/07/25 23:34 Glucose 164 mg/dL (65-115) H 01/07/25 23:34 Calculated Osmolality 300 mOsm/kg (285-295) H 01/07/25 23:34 Calcium 9.1 mg/dL (8.5-10.5) 01/07/25 23:34 Total Bilirubin 0.5 mg/dL (0.15-1.2) 01/07/25 23:34 AST 21 U/L (0-32) 01/07/25 23:34 ALT 11 U/L (0-33) 01/07/25 23:34 Alkaline Phosphatase 126 U/L (35-105) H 01/07/25 23:34 Total Protein 7.3 g/dL (6.6-8.7) 01/07/25 23:34 Albumin 4.1 g/dL (3.5-5.2) 01/07/25 23:34 Globulin 3.2 g/dL (1.3-4.6) 01/07/25 23:34 All radiology interpretation(s) finalized by discharge Discharge Plan Discharge Patient Disposition: Home Clinical Impression: Hematoma of occipital region of scalp Closed right forearm fracture Qualifiers: Encounter type: initial encounter Qualified Code(s): S52.91XA - Unspecified fracture of right forearm, initial encounter for closed fracture Condition: Stable Prescriptions: No Action metformin 500 mg tablet 1,000 mg PO BID levothyroxine 25 mcg capsule 25 mcg PO DAILY clotrimazole-betamethasone 1-0.05 % cream 1 applic topical BID 28 Days Qty: 45 0RF Januvia 100 mg tablet 100 mg PO DAILY (DME) compression stockings See Rx Instructions .Route .MEDSUPPLY Qty: 1 0RF Rx Instructions: As directed clotrimazole-betamethasone 1-0.05 % cream 1 applic topical BID 28 Days Qty: 45 0RF (DME) Diabetic Shoes See Rx Instructions .Route .MEDSUPPLY Qty: 1 0RF Rx Instructions: As directed by [employer] 3 x inserts MELO 999 (DME) diabetic shoes with 3 inserts See Rx Instructions .Route .MEDSUPPLY Qty: 1 0RF Rx Instructions: As directed magnesium L-lactate 84 mg tablet extended release 84 mg PO DAILY Qty: 30 3RF amlodipine [Norvasc] 5 mg tablet 10 mg PO DAILY Qty: 180 3RF Rx Instructions: Once daily at bedtime. potassium chloride 8 mEq capsule, extended release 8 meq PO DAILY Qty: 90 3RF Rx Instructions: dose change furosemide 20 mg tablet 20 mg PO DAILY Qty: 90 0RF losartan 100 mg tablet 150 mg PO DAILY Qty: 180 0RF Rx Instructions: Dosage change on 03/29/23. metoprolol tartrate 50 mg tablet 50 mg PO BID Qty: 180 3RF Discharge Orders: Discharge ED (Routine); Ordered 01/08/25 Ordered By: Jayden Arteaga Referrals: Sunitha Kramer MD [Primary Care Provider] - Patient Instructions: Arm Fracture in Adults (ED) Activity Restrictions/Additional Instructions: Splint on with sling for comfort. Follow-up with orthopedics as directed. Continue taking home medications. Ibuprofen/Tylenol for pain. Ice to head for added relief. Please return with any new or worsening and follow-up with your regular doctor. 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
[2025-01-07 23:18] VITALS: BP 167/85; PULSE 80; RESP 16; O2SAT 95
[2025-01-07] MEDS: HYDROmorphone 0.5 MG/0.5 ML INJ IVP (23:27)
[2025-01-07 23:30] VITALS: PULSE 90; RESP 16; O2SAT 95
[2025-01-07 23:45] LABS: Basophils % 0.2 %; Eosinophils # 0.1 10^3/uL (0.0-0.8); Eosinophils % 0.6 %; Hematocrit 36.9 % (36-47); Lymphocytes # 1.1 10^3/uL (0.8-4.8); Lymphocytes % 8.7 %; Mean Corpuscular HGB Conc 32.2 g/dL (30-55); Mean Corpuscular Hemoglobin 30.7 pg (27-33); Mean Corpuscular Volume 95.1 fl (85-98); Mean Platelet Volume 9.9 fL (7.4-10.4); Monocytes # 0.6 10^3/uL (0.2-0.9); Monocytes % 4.6 %; Neutrophils # 10.83 10^3/uL (1.8-7.7); Neutrophils % 85.4 %; Nucleated Red Blood Cells % 0 %; Platelet Count 231 10^3/cmm (157-399); Red Blood Count 3.88 10^6/uL (3.85-5.65); Red Cell Distribution Width 14.2 % (12.1-15.1); White Blood Count 12.66 10^3/uL (3.29-11.43)
[2025-01-08] VITALS: BP 167/85; PULSE 102; RESP 16; O2SAT 92
[2025-01-08 00:07] LABS: Alanine Aminotransferase 11 U/L (0-33); Albumin Level 4.1 g/dL (3.5-5.2); Alkaline Phosphatase 126 U/L (35-105); Anion Gap 14.9 (5-19); Aspartate Amino Transferase 21 U/L (0-32); Blood Urea Nitrogen 18 mg/dL (8-23); Calcium 9.1 mg/dL (8.5-10.5); Carbon Dioxide 27 mmol/L (22-29); Chloride 104 mmol/L (98-107); Creatinine Clr Calc Pharmacy 48.7284; Globulin 3.2 g/dL (1.3-4.6); Glucose 164 mg/dL (65-115); Osmolality Calculated 300 mOsm/kg (285-295); Potassium 3.9 mmol/L (3.5-5.1); Sodium 142 mmol/L (136-145); Total Bilirubin 0.5 mg/dL (0.15-1.2); Total Protein 7.3 g/dL (6.6-8.7)
[2025-01-08 00:30] VITALS: BP 153/76; PULSE 98; RESP 16; O2SAT 92
[2025-01-08 01:00] VITALS: PULSE 84; RESP 16; O2SAT 90
[2025-01-08 01:30] VITALS: BP 150/50; PULSE 80; RESP 16; O2SAT 91
[2025-01-08 02:33] VITALS: BP 141/69; PULSE 72; O2SAT 93
--- NOTE | 2025-01-08 08:04 | DCPLANNER ---
Message sent Ortho for follow up- referral -fall that occurred just prior to arrival. Patient reports to me that she lost her balance and fell down 3 steps, striking the right occipital region. Also notes that she injured her right forearm in the process, is having pain with any movement of the right forearm.
== END 2025-01-08 02:35 | disposition home or self-care (01) ==
PROVIDERS: Emergency Provider Physician Assistant; PCP Family Medicine
DX: S52.91XA Unspecified fracture of right forearm, initial encounter for closed fracture (principal); S00.03XA Contusion of scalp, initial encounter; Z79.84 Long term (current) use of oral hypoglycemic drugs; E78.5 Hyperlipidemia, unspecified; E11.9 Type 2 diabetes mellitus without complications; I10 Essential (primary) hypertension; W10.9XXA Fall (on) (from) unspecified stairs and steps, initial encounter
CPT/HCPCS: 29125; 36415; 70450; 71045; 72125; 73090; 80053; 85025; 93005; 96374; 99285; J1171

== ENCOUNTER 2025-01-11 11:05 | Emergency (ER) | payer MEDICARE, OTHER, SELFPAY ==
[2025-01-11 11:33] VITALS: BP 154/53; PULSE 73; RESP 18; TEMP 36.6; O2SAT 94; BMI 25.8
[2025-01-11 11:38] VITALS: BP 154/53; PULSE 64; RESP 16; O2SAT 97
--- NOTE | 2025-01-11 11:46 | ED_ITS ---
HPI - Extremity Problem General: Chief complaint: Extremity Problem,Nontraumatic Stated complaint: swelling and bruising on hand - lft arm in cast Time Seen by Provider: 01/11/25 11:35 Source: patient Mode of arrival: ambulatory Limitations: no limitations History of Present Illness: 79-year-old female has had a ulnar fract ure from injury she was seen here this week been placed in a splint she has not followed orthopedics states she is concerned she has had some swelling and bruising to her right hand she denies any new injury denies any increased pain Associated symptoms: Deny chest pain, fever(s) or rash Related Data Previous Rx's ?Medication ?Instructions ?Recorded amlodipine 5 mg tablet (Norvasc) 10 mg (2 x 5 mg) PO D AILY #180 tabs 12/03/24 furosemide 20 mg tablet 20 mg PO DAILY #90 tabs 11/23 05/16 metoprolol tartrate 50 mg tablet 50 mg PO BID #180 tab s 12/09/24 potassium chloride 8 mEq 8 meq PO DAILY #90 caps 11/23 05/16 capsule,extended release losartan 100 mg tablet 150 mg (1.5 x 100 mg) PO PINEDA LY 01/10/25 #180 tabs Allergies Allergy/AdvReac Type Severity Reaction Status Date / Time Sulfa (Sulfonamide Allergy Unknown Unknown Verified 01/07/25 22:46 Antibiotics) Alpha-Gal Allergy ALGY-Anaphy Verified 01/07/25 22:46 (Gqrionccj-Vlbkt-3,3-Gala laxis tramadol Allergy ALGY-Anaphy Verified 01/07/25 22:46 laxis Review of Systems Const: Denies: fever(s), chills, body aches or change in appetite ENMT: Denies: throat pain or dental pain Card: Denies: chest pain Resp: Denies: dyspnea GI: Denies: abdominal pain, nausea, vomiting or diarrhea Musc: Reports: extremity pain and extremity swelling; Denies: neck pain or back pain Skin/Breast: Denies: rash Neuro: Denies: headache(s) PFSH ED PFSH: Medical History Sjogrens syndrome Essential hypertension Diabetes mellitus Sleep apnea Dyslipidemia Family History Mother CAD (coronary artery disease) [place] Grandmother Stroke Father Cancer Diabetes Sister Bleeding disorder CAD (coronary artery disease) Dementia Diabetes Sister Diabetes Denies family history of Clotting disorder Chronic kidney disease (CKD) Suicide Anesthesia complication Lung disease Social History Smoking and tobacco/nicotine status: never used tobacco/nicotine Alcohol intake: never Substance/Drug Use: never Lives independently: Yes Marital status: / Physical Exam Const: COMMON NORMALS: no acute distress, patient oriented x3 and healthy appearing HENMT: COMMON NORMALS: normocephalic and atraumatic HEAD & SCALP: normocephalic and atraumatic Eye: COMMON NORMALS: conjunctivae normal CONJUNCTIVA: Yes conjunctivae normal Neck/C-Spine: COMMON NORMALS: full ROM and supple Chest: COMMONS NORMALS: normal inspection of the chest Resp: COMMON NORMALS: normal respiratory effort Cardio: COMMON NORMALS: regular rate RATE: regular rate Extremity: NARRATIVE EXTREMITY EXAM: Took patient's splint off she does have some slight bruising swelling to her hand no breaks in the skin no redness distal pulses sensation intact Neuro: COMMON NORMALS: patient oriented x3, moves all extremities and no focal motor deficits Psych: COMMON NORMALS: mental status grossly normal, Normal thought process present and cooperative THOUGHT PROCESS: Normal thought process present Skin: COMMON NORMALS: no rashes or lesions noted and no wounds GENERAL SKIN EXAM: no rashes or lesions noted Course Vital Signs: Vital signs: Vital Signs Temperature 97.8 F 01/11/25 11:33 Pulse Rate 64 01/11/25 11:38 Respiratory Rate 16 01/11/25 11:38 Blood Pressure 154/53 01/11/25 11:38 Pulse Oximetry 97 01/11/25 11:38 Oxygen Delivery Me thod Room Air 01/11/25 11:33 MDM - Extremity (Nontraumatic) Medical Decision Making Patient presents here with swelling to her hand did remove her splint her exam here is benign we will place a sugar-tong on she is follow-up orthopedics return if worsening No radiology studies performed this visit Discharge Plan Discharge Patient Disposition: Home Clinical Impression: Closed right forearm fracture Qualifiers: Encounter type: initial encounter Qualified Code(s): S52.91XA - Unspecified fracture of right forearm, initial encounter for closed fracture Condition: Stable Prescriptions: No Action amlodipine [Norvasc] 5 mg tablet 10 mg PO DAILY Qty: 180 3RF Rx Instructions: Once daily at bedtime. 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
[2025-01-11 12:25] VITALS: BP 154/53; PULSE 62; RESP 16; O2SAT 94
== END 2025-01-11 12:27 | disposition home or self-care (01) ==
PROVIDERS: Emergency Provider Emergency Medicine; PCP Family Medicine
DX: S52.91XD Unspecified fracture of right forearm, subsequent encounter for closed fracture with routine healing (principal); X58.XXXD Exposure to other specified factors, subsequent encounter; I10 Essential (primary) hypertension; E11.9 Type 2 diabetes mellitus without complications; E78.5 Hyperlipidemia, unspecified
CPT/HCPCS: 99281

== ENCOUNTER → 2025-01-13 13:11 | Outpatient (BNVA) | payer MEDICARE, OTHER, SELFPAY | PROVIDERS: PCP Family Medicine; Visit Provider Specialist | DX: S52.291A Other fracture of shaft of right ulna, initial encounter for closed fracture (principal); X58.XXXA Exposure to other specified factors, initial encounter | CPT/HCPCS: 73090 ==

== ENCOUNTER 2025-01-13 14:30 | Outpatient (CLI) | payer MEDICARE, OTHER, SELFPAY | END 2025-01-13 14:31 | disposition home or self-care (01) | LOC: SOT 14:32 | PROVIDERS: PCP Family Medicine; Visit Provider Specialist | DX: Z46.89 Encounter for fitting and adjustment of other specified devices (principal); S52.91XD Unspecified fracture of right forearm, subsequent encounter for closed fracture with routine healing; W10.9XXD Fall (on) (from) unspecified stairs and steps, subsequent encounter | CPT/HCPCS: 25530; 99204; L3984 ==

== ENCOUNTER 2025-01-14 13:46 | Outpatient (CLI) | payer MEDICARE, OTHER, SELFPAY ==
--- NOTE | 2025-01-14 13:51 | CTR_ITS ---
PROCEDURE INFORMATION: Exam: CT Chest With Contrast; Diagnostic Exam date and time: 01/14/2025 2:45 PM Age: 79 years old Clinical indication: Prior oncological treatment - abnormal CT chest scan on 12-26-24. Abnormal findings; Abnormal radiologic exam of lung or chest; Prior surgery; Surgery date: 6+ months; Surgery type: Heart ablation; Follow up to CT chest scan; Additional info: Abnormal CT results TECHNIQUE: Imaging protocol: Diagnostic computed tomography of the chest with contrast. Radiation optimization: All CT scans at this facility use at least one of these dose optimization techniques: automated exposure control; mA and/or kV adjustment per patient size (includes targeted exams where dose is matched to clinical indication); or iterative reconstruction. Contrast material: OMNIPAQUE 350; Contrast volume: 100 ml; Contrast route: INTRAVENOUS (IV); COMPARISON: CT chest wo con [id number] 12/26/2024 3:40 PM RADIATION DOSE METRICS: Total DLP (mGy-cm): 323.79 FINDINGS: Lungs: No focal consolidation or other acute appearing pulmonary opacity. Stable 4.3 mm left lower lobe nodule, again, follow-up chest CT is recommended in 6 months. Calcified granuloma in the medial aspect of the left lower lobe. There is no mass noted in the left suprahilar region is described from the previous CT study. Pleural spaces: No pleural effusion or pneumothorax noted. Heart: There is cardiomegaly. There is no pericardial effusion. Heart RV/LV ratio: The RV/LV ratio is 0.71. Lymph nodes: No pathologically enlarged lymph nodes (by short axis size criteria). Vasculature: There is no aortic dissection. There is no aortic aneurysm. There is a focal filling defect in the subsegmental branch of the left lower lobe posterior basal segment, this may be due to a web versus pulmonary embolism however, these are 5 mm thick images. Visualized origins of the celiac, SMA are patent. Bones/joints: No acute osseous abnormality. There is degenerative disease of the spine. Soft tissues: Unremarkable. CT/CT chest w con* [id number] IMPRESSION: 1. Acute versus chronic pulmonary embolus in the subsegmental branch of the left lower lobe posterior basal region. There is no right heart strain. 2. No mass noted in the left suprahilar region.
[2025-01-14] MEDS: iohexol 350 mg/mL 500 mL Btl (per mL) IV (15:09)
== END 2025-01-14 13:47 | disposition home or self-care (01) ==
PROVIDERS: PCP Family Medicine; Visit Provider Family Medicine
DX: R93.89 Abnormal findings on diagnostic imaging of other specified body structures (principal); R91.1 Solitary pulmonary nodule; J84.10 Pulmonary fibrosis, unspecified; I51.7 Cardiomegaly; R93.7 Abnormal findings on diagnostic imaging of other parts of musculoskeletal system
CPT/HCPCS: 71260

== ENCOUNTER 2025-01-16 08:57 | Emergency (ER) | payer MEDICARE, OTHER, SELFPAY ==
[2025-01-16 09:08] VITALS: BP 162/69; PULSE 93; RESP 16; TEMP 36.6; O2SAT 95; BMI 25.7
--- NOTE | 2025-01-16 09:32 | ED_ITS ---
HPI - Recheck/Abnormal Lab/Rx 2 General: Chief Complaint: Recheck/Abnormal Lab/Rx Stated Complaint: BC sent abnormal cat scan Time Seen by Provider: 01/16/25 09:20 History of Present Illness: 79-year-old female who 2 days ago patien t had abnormal CT. On the CT there is a finding of pulmonary embolism her primary care clinic directed her to the emergency room after noting the results. On [address] a [address] of the chest without contrast because of a previous finding of a lung nodule incidentally noted on an MRI. This was done in [place]. She had a follow- up CT with contrast on 01/14. Related Data Home Medications ?Medication ?Instructions ?Recorded ?Confirmed atorvastatin 20 mg tablet (Lipitor) 20 mg PO DAILY 01/13/25 metformin 500 mg tablet 500 mg PO BID 01/13/2501/13 sitagliptin phosphate 100 mg 100 mg PO DAILY 01/13/25 01/13/25 tablet (Januvia) Previous Rx's ?Medication ?Instructions ?Recorded amlodipine 5 mg tablet (Norvasc) 10 mg (2 x 5 mg) PO D AILY #180 tabs 12/03/24 furosemide 20 mg tablet 20 mg PO DAILY #90 tabs 11/23 05/16 potassium chloride 8 mEq 8 meq PO DAILY #90 caps 11/23 05/16 capsule,extended release losartan 100 mg tablet 150 mg (1.5 x 100 mg) PO PINEDA LY 01/10/25 #180 tabs fast form splint, right wrist #1 ea 01/13/25 metoprolol tartrate 50 mg tablet 50 mg PO BID #180 tab s 01/13/25 apixaban 5 mg (74 tabs) tablets in See Rx Instructions PO .COMPLEX 01/16/25 a dose pack (Eliquis DVT-PE Treat #74 ea 30D Start) Allergies Allergy/AdvReac Type Severity Reaction Status Date / Time Sulfa (Sulfonamide Allergy Unknown Unknown Verified 01/13/25 13:07 Antibiotics) Alpha-Gal Allergy ALGY-Anaphy Verified 01/13/25 13:07 (Noidtjsww-Ntsju-3,3-Gala laxis tramadol Allergy ALGY-Anaphy Verified 01/13/25 13:07 laxis Review of Systems 2 Const: Denies: fever(s) or chills Card: Denies: chest pain Resp: Denies: dyspnea GI: Denies: abdominal pain PFSH ED 2 PFSH: Medical History Sjogrens syndrome Essential hypertension Diabetes mellitus Sleep apnea Dyslipidemia Family History Mother CAD (coronary artery disease) [place] Grandmother Stroke Father Cancer Diabetes Sister Bleeding disorder CAD (coronary artery disease) Dementia Diabetes Sister Diabetes Denies family history of Clotting disorder Chronic kidney disease (CKD) Suicide Anesthesia complication Lung disease Social History Smoking and tobacco/nicotine status: never used tobacco/nicotine Alcohol intake: never Substance/Drug Use: never Lives independently: Yes Marital status: / Physical Exam 2 Const: COMMON NORMALS: no acute distress GENERAL APPEARANCE: cooperative and comfortable ORIENTATION/CONSCIOUSNESS: Yes awake, Yes oriented to person, Yes oriented to place and Yes oriented to time HENMT: COMMON NORMALS: normocephalic, atraumatic and hearing grossly normal bilaterally HEAD & SCALP: normocephalic and atraumatic Resp: COMMON NORMALS: normal respiratory effort, No retractions, No use of accessory muscles and clear to auscultation bilaterally AUSCULTATION: clear to auscultation bilaterally Cardio: COMMON NORMALS: regular rate, regular rhythm and No murmurs present (Cardio) RATE: regular rate RHYTHM: regular rhythm Extremity: COMMON NORMALS: normal to inspection, capillary refill normal, no clubbing, cyanosis or edema, no calf tenderness and no pedal edema Neuro: SENSORIUM/ORIENTATION: Yes oriented to person, Yes oriented to place and Yes oriented to time Skin: COMMON NORMALS: no rashes or lesions noted GENERAL SKIN EXAM: no rashes or lesions noted Course 2 Vital Signs: Vital signs: Vital Signs Temperature 97.9 F 01/16/25 09:08 Pulse Rate 84 01/16/25 10:25 Respiratory Rate 16 01/16/25 09:08 Blood Pressure 162/71 01/16/25 10:25 Pulse Oximetry 98 01/16/25 10:25 Oxygen Delivery Me thod Room Air 01/16/25 10:11 MDM - Recheck/Abnormal Lab/Rx Medical Decision Making Chart reviewed earlier this month patient had a CT that was done of the chest without contrast because of concern of pulmonary nodule that had been incidentally noted on her previous MRI. 2 days ago the patient had a repeat CT of the chest with contrast for better visualization of any questionable structures. That second CT was read as having a pulmonary embolism. She is not short of breath or having symptoms now started on oral anticoagulants set up for an outpatient venous duplex of her lower extremities. Discussed with the importance of follow-up with her primary care doctor regarding continuing on the Eliquis. Lab Data 01/16/25 10:14 01/16/25 10:14 Laboratory Results WBC 7.20 10^3/uL (3.29-11.43) 01/16/25 10:14 RBC 4.04 10^6/uL (3.85-5.65) 01/16/25 10:14 Hgb 12.20 g/dL (11.27-16.99) 01/16/25 10:14 Hct 38.2 % (36-47) 01/16/25 10:14 MCV 94.6 fl (85-98) 01/16/25 10:14 MCH 30.2 pg (27-33) 01/16/25 10:14 MCHC 31.9 g/dL (30-55) 01/16/25 10:14 RDW 13.6 % (12.1-15.1) 01/16/25 10:14 Plt Count 294 10^3/cmm (157-399) 01/16/25 10:14 MPV 9.8 fL (7.4-10.4) 01/16/25 10:14 Neut % (Auto) 76.1 % 01/16/25 10:14 Lymph % (Auto) 16.8 % 01/16/25 10:14 [place] % (Auto) 5.0 % 01/16/25 10:14 Eos % (Auto) 1.4 % 01/16/25 10:14 Baso % (Auto) 0.3 % 01/16/25 10:14 Neut # (Auto) 5.48 10^3/uL (1.8-7.7) 01/16/25 10:14 Lymph # (Auto) 1.2 10^3/uL (0.8-4.8) 01/16/25 10:14 [place] # (Auto) 0.4 10^3/uL (0.2-0.9) 01/16/25 10:14 Eos # (Auto) 0.1 10^3/uL (0.0-0.8) 01/16/25 10:14 Baso # (Auto) 0.0 10^3/uL (0.0-0.1) 01/16/25 10:14 Nucleated RBC % (auto) 0 % 01/16/25 10:14 Nucleated RBCs # 0.0 /100WBC 01/16/25 10:14 Sodium 143 mmol/L (136-145) 01/16/25 10:14 Potassium 4.0 mmol/L (3.5-5.1) 01/16/25 10:14 Chloride 105 mmol/L (98-107) 01/16/25 10:14 Carbon Dioxide 27 mmol/L (22-29) 01/16/25 10:14 Anion Gap 15.0 (5-19) 01/16/25 10:14 BUN 16 mg/dL (8-23) 01/16/25 10:14 Creatinine 1.1 mg/dL (0.5-0.9) H 01/16/25 10:14 GFR Calculation Not Reportable 01/16/25 10:14 Glucose 169 mg/dL (65-115) H 01/16/25 10:14 Calculated Osmolality 301 mOsm/kg (285-295) H 01/16/25 10:14 Calcium 9.1 mg/dL (8.5-10.5) 01/16/25 10:14 Total Bilirubin 0.6 mg/dL (0.15-1.2) 01/16/25 10:14 AST 16 U/L (0-32) 01/16/25 10:14 ALT 9 U/L (0-33) 01/16/25 10:14 Alkaline Phosphatase 117 U/L (35-105) H 01/16/25 10:14 Total Protein 7.8 g/dL (6.6-8.7) 01/16/25 10:14 Albumin 4.1 g/dL (3.5-5.2) 01/16/25 10:14 Globulin 3.7 g/dL (1.3-4.6) 01/16/25 10:14 All radiology interpretation(s) finalized by discharge Discharge Plan Discharge Patient Disposition: Home Clinical Impression: Pulmonary embolism Condition: Stable Prescriptions: New Eliquis DVT-PE Treat 30D Start 5 mg (74 tabs) tablets,dose pack See Rx Instructions .ROUTE .COMPLEX Qty: 74 0RF Rx Instructions: orally per package directions No Action metformin 500 mg tablet 500 mg PO BID atorvastatin [Lipitor] 20 mg tablet 20 mg PO DAILY Januvia 100 mg tablet 100 mg PO DAILY (DME) fast form splint, right wrist See Rx Instructions .Route .MEDSUPPLY Qty: 1 0RF Rx Instructions: As directed amlodipine [Norvasc] 5 mg tablet 10 mg PO DAILY Qty: 180 3RF Rx Instructions: Once daily at bedtime. potassium chloride 8 mEq capsule, extended release 8 meq PO DAILY Qty: 90 3RF Rx Instructions: dose change furosemide 20 mg tablet 20 mg PO DAILY Qty: 90 0RF losartan 100 mg tablet 150 mg PO DAILY Qty: 180 3RF metoprolol tartrate 50 mg tablet 50 mg PO BID Qty: 180 3RF Discharge Orders: Discharge ED (Routine); Ordered 01/16/25 Ordered By: Ochoa Mccarty Referrals: Sunitha Kramer MD [Primary Care Provider] - Discharge Diet: Usual diet Discharge Activity: Increase activity as tolerated Patient Instructions: Pulmonary Embolism (ED), Opioid Safety, Pain Management Activity Restrictions/Additional Instructions: Thank you for choosing [facility] for your healthcare needs today. It is very important that you follow up as instructed or that you return to the Emergency Department should you have concerns or if your condition changes or worsens in any way. You are seen in emergency room as a result of a PET scan that shows a pulmonary embolism. You were given a shot of Lovenox and given a prescription for Eliquis. The prescriptions for 30 days important you continue the prescription until your doctor specifically tells you you may stop. You will need to follow- up with your doctor to get a refill of this medication. Case management was a up for an outpatient venous duplex of the lower extremities Print Language: Guamanian Coding Level of Care Code ED Drupal Developer for Mayito Ramirez
[2025-01-16 10:11] VITALS: BP 174/65; O2SAT 96
[2025-01-16] MEDS: enoxaparin 80 mg/0.8 mL Syringe 70 MG SUBCUT (10:16)
[2025-01-16 10:21] LABS: Basophils % 0.3 %; Eosinophils # 0.1 10^3/uL (0.0-0.8); Eosinophils % 1.4 %; Hematocrit 38.2 % (36-47); Lymphocytes # 1.2 10^3/uL (0.8-4.8); Lymphocytes % 16.8 %; Mean Corpuscular HGB Conc 31.9 g/dL (30-55); Mean Corpuscular Hemoglobin 30.2 pg (27-33); Mean Corpuscular Volume 94.6 fl (85-98); Mean Platelet Volume 9.8 fL (7.4-10.4); Monocytes # 0.4 10^3/uL (0.2-0.9); Neutrophils # 5.48 10^3/uL (1.8-7.7); Neutrophils % 76.1 %; Nucleated Red Blood Cells % 0 %; Platelet Count 294 10^3/cmm (157-399); Red Blood Count 4.04 10^6/uL (3.85-5.65); Red Cell Distribution Width 13.6 % (12.1-15.1)
[2025-01-16 10:25] VITALS: BP 162/71; PULSE 84; O2SAT 98
[2025-01-16 10:40] LABS: Alanine Aminotransferase 9 U/L (0-33); Albumin Level 4.1 g/dL (3.5-5.2); Alkaline Phosphatase 117 U/L (35-105); Aspartate Amino Transferase 16 U/L (0-32); Blood Urea Nitrogen 16 mg/dL (8-23); Calcium 9.1 mg/dL (8.5-10.5); Carbon Dioxide 27 mmol/L (22-29); Chloride 105 mmol/L (98-107); Creatinine Clr Calc Pharmacy 43.5624; Globulin 3.7 g/dL (1.3-4.6); Glucose 169 mg/dL (65-115); Osmolality Calculated 301 mOsm/kg (285-295); Sodium 143 mmol/L (136-145); Total Bilirubin 0.6 mg/dL (0.15-1.2); Total Protein 7.8 g/dL (6.6-8.7)
--- NOTE | 2025-01-16 15:22 | DCPLANNER ---
faxed outpatient [facility] venous to scheduling
== END 2025-01-16 10:27 | disposition home or self-care (01) ==
PROVIDERS: Emergency Provider Family Medicine; PCP Family Medicine
DX: I26.99 Other pulmonary embolism without acute cor pulmonale (principal); Z79.84 Long term (current) use of oral hypoglycemic drugs; E11.9 Type 2 diabetes mellitus without complications; E78.5 Hyperlipidemia, unspecified; I10 Essential (primary) hypertension
CPT/HCPCS: 36415; 80053; 85025; 96372; 99284; J1650

== ENCOUNTER → 2025-01-27 14:46 | Outpatient (BNVA) | payer MEDICARE, OTHER, SELFPAY | PROVIDERS: PCP Family Medicine; Visit Provider Specialist | DX: S52.291D Other fracture of shaft of right ulna, subsequent encounter for closed fracture with routine healing (principal); X58.XXXD Exposure to other specified factors, subsequent encounter | CPT/HCPCS: 73090; 99024 ==

== ENCOUNTER → 2025-03-03 15:38 | Outpatient (BNVA) | payer MEDICARE, OTHER, SELFPAY | PROVIDERS: PCP Family Medicine; Visit Provider Specialist | DX: Z98.890 Other specified postprocedural states (principal); Z87.81 Personal history of (healed) traumatic fracture | CPT/HCPCS: 73110; 99024 ==

== ENCOUNTER → 2025-03-04 07:21 | Outpatient (BNVA) | payer MEDICARE, OTHER, SELFPAY | PROVIDERS: PCP Family Medicine; Visit Provider Podiatrist Foot & Ankle Surgery | DX: E11.69 Type 2 diabetes mellitus with other specified complication (principal); B35.1 Tinea unguium; I73.9 Peripheral vascular disease, unspecified; Z79.84 Long term (current) use of oral hypoglycemic drugs | CPT/HCPCS: 11721 ==

== ENCOUNTER 2025-03-25 10:05 | Outpatient (RCR) | payer MEDICARE, OTHER, SELFPAY | END 2025-04-21 23:59 | disposition home or self-care (01) | LOC: SOT 10:05 | PROVIDERS: Visit Provider Specialist | DX: S52.291A Other fracture of shaft of right ulna, initial encounter for closed fracture (principal); X58.XXXA Exposure to other specified factors, initial encounter | CPT/HCPCS: 97022; 97110; 97165; 97530 ==

== ENCOUNTER → 2025-04-02 10:50 | Outpatient (BNVA) | payer MEDICARE, OTHER, SELFPAY | PROVIDERS: PCP Family Medicine; Visit Provider Specialist | DX: Z98.890 Other specified postprocedural states (principal) | CPT/HCPCS: 99024 ==

== ENCOUNTER → 2025-04-07 11:03 | Outpatient (BNVA) | payer MEDICARE, OTHER, SELFPAY | PROVIDERS: PCP Family Medicine; Visit Provider Nurse Practitioner Family | DX: I11.0 Hypertensive heart disease with heart failure (principal); I50.32 Chronic diastolic (congestive) heart failure; I34.0 Nonrheumatic mitral (valve) insufficiency; E11.9 Type 2 diabetes mellitus without complications; G47.30 Sleep apnea, unspecified; Z86.711 Personal history of pulmonary embolism; I49.8 Other specified cardiac arrhythmias; Z79.01 Long term (current) use of anticoagulants; Z79.84 Long term (current) use of oral hypoglycemic drugs | CPT/HCPCS: 99214 ==

== ENCOUNTER → 2025-05-14 07:19 | Outpatient (BNVA) | payer MEDICARE, OTHER, SELFPAY | PROVIDERS: PCP Family Medicine; Visit Provider Podiatrist Foot & Ankle Surgery | DX: E11.8 Type 2 diabetes mellitus with unspecified complications (principal); B35.1 Tinea unguium; I73.9 Peripheral vascular disease, unspecified; Z79.84 Long term (current) use of oral hypoglycemic drugs; S52.291D Other fracture of shaft of right ulna, subsequent encounter for closed fracture with routine healing; X58.XXXD Exposure to other specified factors, subsequent encounter | CPT/HCPCS: 11056; 11721; 73110; 99213 ==

== ENCOUNTER 2025-06-05 13:07 | Outpatient (CLI) | payer MEDICARE, OTHER, SELFPAY ==
--- NOTE | 2025-06-05 | MM_ITS ---
WS: [id number] BILATERAL 3D TOMOSYNTHESIS DIGITAL SCREENING MAMMOGRAPHY WITH CAD CLINICAL INFORMATION: ANNUAL SCREENING HISTORY: Screening mammogram. No current complaints. COMPARISON: 2023 TECHNIQUE: Bilateral CC and MLO views. FINDINGS: Scattered fibroglandular densities bilaterally. No suspicious focal mass, asymmetry, calcifications, or architectural distortion. No evidence of malignancy. MM/MM scr BI tomosynthesis [id number] IMPRESSION: DENSITY: There are scattered areas of fibroglandular density. BI-RADS: 1 - Negative. FOLLOW UP: 1 Year Follow-up Recommend return to annual screening mammography.
--- NOTE | 2025-06-05 13:19 | XR_ITS ---
WS: [id number] DEXA (DUAL ENERGY X-RAY ABSORPTIOMETRY) Bone mineral density was performed using a Vivo machine. HISTORY: SCREENING FOR OSTEOPOROSIS COMPARISON: None available. Lumbar spine BMD (L1-L4): 1.265 g/cm2 T score: 0.7 Z score: 2.3 Total hip BMD: Left: 0.824 g/cm2. T score: -1.5 Z score: 0.3 Right: 0.794 g/cm2. T score: -1.7 Z score: 0.1 10 year probability of a major osteoporotic fracture is 17.4%. XR/XR DEXA axial skeleton* [id number] IMPRESSION: OSTEOPENIA based upon the WHO classification for females.
== END 2025-06-05 13:08 | disposition home or self-care (01) ==
LOC: RAD 13:09
PROVIDERS: PCP Family Medicine; Visit Provider Family Medicine
DX: Z12.31 Encounter for screening mammogram for malignant neoplasm of breast (principal); Z13.820 Encounter for screening for osteoporosis; R92.323 Mammographic fibroglandular density, bilateral breasts
CPT/HCPCS: 77063; 77067; 77080

== ENCOUNTER 2025-07-03 12:52 | Outpatient (CLI) | payer MEDICARE, OTHER, SELFPAY ==
--- NOTE | 2025-07-03 12:57 | CTR_ITS ---
PROCEDURE INFORMATION: Exam: CT Chest Without Contrast; Diagnostic Exam date and time: 07/03/2025 1:09 PM Age: 80 years old Clinical indication: Condition or disease; Lung condition and disease; Pulmonary nodule, solitary; Additional info: Nodule of lung TECHNIQUE: Imaging protocol: Diagnostic computed tomography of the chest without contrast. Radiation optimization: All CT scans at this facility use at least one of these dose optimization techniques: automated exposure control; mA and/or kV adjustment per patient size (includes targeted exams where dose is matched to clinical indication); or iterative reconstruction. COMPARISON: CT chest w con* [id number] 01/14/2025 2:45 PM RADIATION DOSE METRICS: Total DLP (mGy-cm): 347.77 FINDINGS: Lungs: No focal consolidation or generalized interstitial process. Calcified left basilar granuloma. Stable 5 mm nodule in the superior segment left lower lobe. No new or enlarging pulmonary nodules. Pleural spaces: Unremarkable. No pneumothorax. No pleural effusion. Heart: Trace free pericardial fluid may be physiologic. Stable heart size. Lymph nodes: Calcified left hilar lymph nodes. No enlarged lymph nodes. Vasculature: Unremarkable. No aortic aneurysm. Spleen: Calcified splenic granulomas. Bones/joints: Unremarkable. No acute fracture. Soft tissues: Unremarkable. CT/CT chest wo con [id number] IMPRESSION: Stable 5 mm left lower lobe pulmonary nodule. For patients at low risk (minimal or absent history of smoking and of other known risk factors), no routine follow-up is indicated. For patients at high risk (history of smoking or of other known risk factors), consider optional CT Chest at 12 months. (Reference: Loretta) REFERENCES: Loretta Shi et al. Guidelines for Management of Incidental Pulmonary Nodules Detected on CT Images: From the Fleischner Society 2017. Radiology. 2017;284(1):228-243.
== END 2025-07-03 12:53 | disposition home or self-care (01) ==
LOC: RAD 12:53
PROVIDERS: PCP Family Medicine; Visit Provider Family Medicine
DX: R91.1 Solitary pulmonary nodule (principal)
CPT/HCPCS: 71250

== ENCOUNTER → 2025-07-16 06:51 | Outpatient (BNVA) | payer MEDICARE, OTHER, SELFPAY | PROVIDERS: PCP Family Medicine; Visit Provider Podiatrist Foot & Ankle Surgery | DX: E11.8 Type 2 diabetes mellitus with unspecified complications (principal); B35.1 Tinea unguium; L84 Corns and callosities; I73.9 Peripheral vascular disease, unspecified; R60.9 Edema, unspecified; Z79.84 Long term (current) use of oral hypoglycemic drugs | CPT/HCPCS: 11056; 11721; 99213 ==

== ENCOUNTER 2025-07-29 14:50 | Outpatient (CLI) | payer MEDICARE, OTHER, SELFPAY ==
--- NOTE | 2025-07-29 15:30 | USCV_ITS ---
Lexi Escalera Age: 80 Gender: F : 1945 Exam Date: 07/29/2025 15:14 Ordering Phys: Jennifer Farrell Technologist: PRATEEK Exam Location: [facility] [place] Indication: rt leg swelling HISTORY: Lower extremity swelling-RIGHT PROCEDURES: Venous duplex imaging was performed in only the right lower extremity. The following venous structures were evaluated: common femoral vein, profunda vein, proximal portion of the greater saphenous vein, superficial femoral vein, and the popliteal vein. In addition, the posterior tibial and peroneal trunk were evaluated. FINDINGS: Normal 2-D Doppler and augmentation and compressibility throughout the lower extremity venous structures. Additional imaging through the proximal calf veins also reveals no thrombus. Limited evaluation of the greater saphenous vein is patent with no thrombus. CONCLUSIONS No evidence of right lower extremity DVT. Rene Henry MD (Electronically Signed) Final Date: 29 July 2025 16:59 S
== END 2025-07-29 14:51 | disposition home or self-care (01) ==
LOC: RAD 14:52
PROVIDERS: PCP Family Medicine; Visit Provider Nurse Practitioner Family
DX: R60.0 Localized edema (principal)
CPT/HCPCS: 93971

== ENCOUNTER → 2025-09-24 08:14 | Outpatient (BNVA) | payer MEDICARE, OTHER, SELFPAY | PROVIDERS: PCP Family Medicine; Visit Provider Podiatrist Foot & Ankle Surgery | DX: E11.8 Type 2 diabetes mellitus with unspecified complications (principal); B35.1 Tinea unguium; I73.9 Peripheral vascular disease, unspecified; R60.9 Edema, unspecified; B35.3 Tinea pedis; Z79.84 Long term (current) use of oral hypoglycemic drugs | CPT/HCPCS: 11055; 11721; 99213 ==